=== PATIENT | female | born 1965 | race Caucasian/White ===

== ENCOUNTER 2018-09-24 17:15 | Emergency (ER) | payer OTHER ==
[2018-09-24] MEDS ORDERED: Promethazine 25 MG Tab PO ONE (17:55)
[2018-09-24] MEDS ORDERED: Acetaminophen/HYDROcodone 325-10 MG Tab PO ONE (17:55)
--- NOTE | 2018-09-24 19:16 | EDM.PDOC ---
Scribed by Chio Osborne 09/24/18 1915 for Kingsley Jenkins MD ED HPI GENERAL MEDICAL PROBLEM - General Chief Complaint: Upper Extremity Injury/Pain Stated Complaint: NAUSEA ARM MAY BE BROKEFELL DOWN STAIRS [id number] Time Seen by Provider: 09/24/18 17:53 Source of Information: Reports: Patient, RN, RN Notes Reviewed History Limitations: Reports: No Limitations - History of Present Illness INITIAL COMMENTS - FREE TEXT/NARRATIVE: Patient presents to ER after falling down steps injuring the right wrist and shoulder. Denies head or neck injury. Denies loss of consciousness. States that she slipped on the top step and fell down approximately 12 steps. Rates pain 9/ 10 and is worse with movement and palpation of the injured area. Nothing has alleviated the pain. Onset: Today Duration: Constant Location: Reports: Upper Extremity, Right Quality: Reports: Ache Severity: Severe Improves with: Reports: None Worsens with: Reports: Movement (and palpation) Associated Symptoms: Reports: No Other Symptoms Right Wrist Pain Score (Numeric/FACES): 10 - Related Data Allergies Allergy/AdvReac Type Severity Reaction Status Date / Time No Known Allergies Allergy Verified 09/24/18 17:53 Past Medical History - Past Health History Medical/Surgical History: Denies Medical/Surgical History Social & Family History - Family History Family Medical History: Noncontributory - Tobacco Use Smoking Status *Q: Never Smoker - Living Situation & Occupation Living situation: Reports: with Significant Other Occupation: Employed Review of Systems - Review of Systems Review Of Systems: ROS reveals no pertinent complaints other than HPI. ED EXAM, GENERAL - Physical Exam Exam: See Below Exam Limited By: No Limitations General Appearance: Alert, WD/WN, No Apparent Distress Throat/Mouth: Normal Inspection, Normal Voice Head: Atraumatic, Normocephalic Neck: Normal Inspection, Supple, Non-Tender, Full Range of Motion Respiratory/Chest: No Respiratory Distress, Lungs Clear, Normal Breath Sounds, No Accessory Muscle Use, Chest Non-Tender Cardiovascular: Normal Peripheral Pulses, Regular Rate, Rhythm, No Edema, No Gallop, No JVD, No Murmur, No Rub GI/Abdominal: Normal Bowel Sounds, Non-Tender, No Distention (Female) Exam: Deferred Rectal (Female) Exam: Deferred Back Exam: Normal Inspection, Full Range of Motion, NT Extremities: No Pedal Edema, Normal Capillary Refill, Joint Swelling (mild right wrist with mild volar deformity), Arm Pain (right shoulder), Limited Range of Motion (right shoulder and wrist), Other (no visible bruising. Sklin is intact.). No: Redness Neurological: Alert, Oriented, CN II-XII Intact, Normal Cognition, Normal Gait, Normal Reflexes, No Motor/Sensory Deficits Psychiatric: Normal Affect, Normal Mood Skin Exam: Warm, Dry, Intact, Normal Color, No Rash ED TRAUMA EXTREMITY PROCEDURES - Splinting Right Upper Extremity Splint Site: Rt wrist Pre-Procedure NV Status: Normal Post-Procedure NV Status: Normal Splint Material: Fiberglass Splint Design: Volar Applied & Form Fitted By: Provider Provider Post-Splint Application NV Check: NV Status Normal, Good Position Complications: No Course - Vital Signs Last Recorded V/S: Last Vital Signs Temp 36.1 C 09/24/18 17:53 Pulse 75 09/24/18 17:53 Resp 20 09/24/18 17:53 BP 120/76 09/24/18 17:53 Pulse Ox 100 09/24/18 17:53 - Orders/Labs/Meds Meds: Medications Discontinued Medications Generic Name Dose Route Start Last Admin Trade Name Freq PRN Reason Stop Dose Admin Hydrocodone Bitart/Acetaminophen 1 tab 09/24/18 17:55 09/24/18 18:01 [place] 325-10 Mg PO 09/24/18 17:56 1 tab ONETIME ONE Administration Promethazine HCl 25 mg 09/24/18 17:55 09/24/18 18:01 Phenergan PO 09/24/18 17:56 25 mg ONETIME ONE Administration - Radiology Interpretation Free Text/Narrative:: FINDINGS: Bones/joints: There is comminuted impacted distal radial fracture with slight dorsal displacement. There is associated comminuted ulnar styloid process fracture Soft tissues: Normal. IMPRESSION: Distal radial and ulnar fractures. Thank you for allowing us to participate in the care of your patient. Dictated and Authenticated by: Efraín Linda MD 09/24/2018 6:31 PM Central Time ([place] & [place]) FINDINGS: Bones/joints: There are moderate degenerative changes of the acromioclavicular joint. No acute fracture Soft tissues: Normal. IMPRESSION: No acute process Thank you for allowing us to participate in the care of your patient. Dictated and Authenticated by: Efraín Linda MD 09/24/2018 6:30 PM Central Time ([place] & [place]) Departure - Departure Time of Disposition: 19:11 Disposition: Home, Self-Care 01 Condition: Good Clinical Impression: Closed fracture of right distal radius and ulna Qualifiers: Encounter type: initial encounter Qualified Code(s): S52.501A - Unspecified fracture of the lower end of right radius, initial encounter for closed fracture ; S52.601A - Unspecified fracture of lower end of right ulna, initial encounter for closed fracture - Discharge Information *PRESCRIPTION DRUG MONITORING PROGRAM REVIEWED*: Not Applicable *COPY OF PRESCRIPTION DRUG MONITORING REPORT IN PATIENT CAROLE: Not Applicable Instructions: [facility] Fracture Forms: ED Department Discharge Additional Instructions: Follow up with an orthopedic surgeon at the first available appointment. Keep splint in place, may rewrap if you need to tighten or loosen it. Return to ER if worse at any time. Rx: Percocet 5mg/325mg *Do not drive while under the influence of this medication. Rx: Promethazine 25mg *Do not drive while under the influence of this medication. I have read and agree with the documentation that has been completed regarding this visit. By signing this record, I attest that the documentation was completed in my physical presence and is an accurate record of the encounter.
== END 2018-09-24 19:30 | disposition home or self-care (01) ==
LOC: DL.ED 17:15
DX: S52.501A Unspecified fracture of the lower end of right radius, initial encounter for closed fracture (principal); S52.601A Unspecified fracture of lower end of right ulna, initial encounter for closed fracture; W10.8XXA Fall (on) (from) other stairs and steps, initial encounter
CPT/HCPCS: 29125; 73030-RT; 73110-RT; 99283; A9270-GY